=== PATIENT | female | born 1980 | race Caucasian/White ===

== ENCOUNTER 2016-10-16 10:57 | Emergency (ER) | payer SELFPAY ==
[~2016-10-16] VITALS: Ht 162.6 cm; Wt 90.0 kg
[2016-10-16 11:07] VITALS: BP 160/108; PULSE 96; RESP 12; O2SAT 98
--- NOTE | 2016-10-16 11:38 | ED.REPORT ---
HPI-General Illness Date of Service October 16, 2016 ED Provider: Lisandro Hurtado MD The patient is a 35 year old female with history of hypertension and anemia, who presents to the emergency department complaining of bilateral blurred vision that began earlier today while she was at work. She also felt shaky, dizzy, lightheaded, sweaty, and like she was going to pass out. She also noticed tingling around her lip and palpitations. She denies confusion, speech problem, vision loss, numbness, weakness, nausea, vomiting, chest pain or shortness of breath. Her symptoms are almost resolved except for her vision on the left is not completely back to normal, and she feels fatigue. She has family history of MS and brain aneurysm. She has not been sick recently. Nursing Notes Stated Complaint: BLURRY VISION Chief Complaint: Neuro Symptoms/ Deficits Nursing Notes Reviewed: Yes (Silver Push, meds not reconciled) Allergies: Coded Allergies: Penicillins (Verified Allergy, Severe, hives, 10/16/16) Scheduled Ferrous Sulfate (Iron) 325 Mg Tablet 650 MG PO DAILY Lisinopril (Lisinopril) 5 Mg Tablet 2.5 MG PO HS General Time Seen by MD: 11:37 Chief Complaint Other (blurred vision) Hx Obtained From: Patient Arrived By: Walk-in Sudden in Onset?: Yes Onset Occurred: 1 - 4 hours ago Symptom Duration: Since onset Severity: Current: No pain currently Severity: Maximum: No pain NIH Stroke Scale Level of Consciousness: Alert and responsive (0) Ask Month & Age: Both questions right (0) Open/Close Eyes/Hand Lead Network Engineer: Performs both tasks (0) Horizontal EO Movements: None (0) Visual Kemp: No visual loss (0) Facial Palsy: Normal symmetry (0) Right Arm Motor Drift (10s): No drift 10 sec (0) Left Arm Motor Drift (10s): No drift 10 sec (0) Right Leg Motor Drift (5s): No drift 5 sec (0) Left Leg Motor Drift (5s): No drift 5 sec (0) Limb Ataxia FNF/Heel-Sarmiento: No ataxia (0) Sensation (Arms/Legs/Face): No sensory loss (0) Language Aphasia: No aphasia, normal (0) Dysarthria: No dysarthria, normal (0) Extinction/Inattention: No exctinct/inattent (0) NIHSS Score: 0 Time NIHSS Performed: 11:51 Date NIHSS Performed: October 16, 2016 Past Medical History Past Medical History Hypertension Anemia Past Surgical History Reports: (x2) Reports: Tubal ligation Family History MS Brain aneurysm Stroke Smoking History Never Smoker Social History Alcohol Use: Denies alcohol use Other Social History: Good social support, Local resident 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 Ambulatory Status Independent Review of Systems +tingling around lip Full Review of Systems Constitutional: Reports: Fatigue, Denies: Chills, Fever Ears / Nose / Throat: Denies: Nasal congestion, Sore throat Respiratory: Denies: Non-productive cough, Prod cough, bloody, Prod cough, brown, Prod cough, clear, Prod cough, green, Prod cough, white, Prod cough, yellow, Shortness of breath Cardiovascular: Reports: Palpitations, Denies: Chest pain GI: Denies: Abdominal pain, Diarrhea, Nausea, Vomiting Skin: Reports Diaphoresis Neurologic: Reports: Dizziness, Lightheaded, Shaking, Vision change, Denies: Confusion, Focal weakness, Numbness, Slurred speech, Syncope, Unable to speak Complete sys rev & neg: except as marked. Physical Exam Vital Signs Vital Signs Date Time Temp Pulse Resp B/P Pulse Ox O2 Delivery O2 Flow Rate FiO2 10/16/16 15:37 36.9 78 17 135/74 99 10/16/16 14:52 81 15 137/78 98 Room Air 10/16/16 12:20 77 14 142/77 97 Room Air 10/16/16 11:07 36.6 96 12 160/108 98 Room Air Initial VS: Reviewed Head / Eyes: Atraumatic, Normocephalic, PERRL ENT: Mucous membranes moist, Conjunctiva normal, No scleral icterus Neck: Supple, Non-tender, Full range of motion Respiratory: Breath sounds normal, Clear to auscultation, No respiratory distress Cardiovascular: Regular rate & rhythm, Heart sounds normal, Intact distal pulses Abdomen / GI: Soft, Non-tender, No guarding, No rebound, No distention Lymphatic: No lymphadenopathy Extremities: Vascular intact, Neuro intact, No swelling, No tenderness Skin: Warm, Dry, No cyanosis Psychiatric: Mood/affect normal, Behavior normal, Normal thought content General/Constitutional: Awake, Alert, No acute distress, Well appearing, Well developed, Well hydrated, Well nourished, Cooperative Neurologic: Oriented X3, Speech NL, No motor deficits, No sensory deficits, CN II - XII intact, Cerebellar NL, Memory NL NIHSS: 0, see above for more details. Interpretation & Diagnostics Interpretation & Diagnostics: IMPRESSION: BRAIN MRI: 1. No acute intracranial hemorrhage or ischemia. 2. No focal parenchymal abnormalities or abnormal enhancement within the brain. BRAIN MR ANGIOGRAM: 1. The arteries within the brain are within normal limits. 2. No aneurysm, occlusion, or evidence to suggest dissection of the intracranial vessels. NECK MR ANGIOGRAM: 1. Normal appearance of the carotid and vertebral arteries. 2. No significant atherosclerosis, stenosis, aneurysm, or evidence of dissection. The estimate of stenosis included in the report of the imaging study was calculated using the NASCET method Dictated by: Dada Mcpherson M.D. on 10/16/2016 at 13:16 Lab Results Interpretation Result Diagram: 10/16/16 1215 10/16/16 1215 Test 10/16/16 12:15 White Blood Count 5.7th/mm3 (3.8-10.1) Red Blood Count 4.32mil/mm3 (3.90-5.20) Hemoglobin 9.1g/dL (12.0-15.6) Hematocrit 31.0% (35.0-46.0) Mean Corpuscular Volume 71.8fL (81-100) Mean Corpuscular Hemoglobin 21.1pg (27.0-35.0) Mean Corpuscular Hemoglobin Concent 29.4% (32.0-37.0) Red Cell Distribution Width 18.0% (12.3-15.4) Platelet Count 311bil/L (150-400) Neutrophils (%) (Auto) 64.7% (40-74) Lymphocytes (%) (Auto) 24.3% (14-46) Monocytes (%) (Auto) 8.5% (4-12) Eosinophils (%) (Auto) 1.6% (0-5) Basophils (%) (Auto) 0.7% (0-3) Sodium Level 139mEq/L (134-144) Potassium Level 3.7mEq/L (3.5-5.2) Chloride Level 103mEq/L (97-108) Carbon Dioxide Level 23mmol/L (18-29) Blood Urea Nitrogen 12mg/dL (6-20) Creatinine 0.57mg/dL (0.57-1.00) Estimat Glomerular Filtration Rate 172mL/min (>59) Glucose Level 99mg/dL (60-99) Calcium Level 9.1mg/dL (8.5-10.1) Total Bilirubin 0.7mg/dL (0.0-1.2) Aspartate Amino Transf (AST/SGOT) 13U/L (0-50) Alanine Aminotransferase (ALT/SGPT) 10U/L (0-32) Alkaline Phosphatase 68U/L (25-150) Total Protein 7.1g/dL (6.4-8.4) Albumin 3.9g/dL (3.4-5.0) Lab Results Interpretation: CBC normal CMP normal ECG Interpretation ECG Interpretation: Sinus rhythm with a rate of 73 No acute abnormalities No prior for comparison Time: 12:18 Interpreted by: ED physician Re-Eval/Medical Decision Med Decision/Clinical Course This is a 35-year-old female who presents for complaint of sudden onset of not feeling well, 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 She denies headache, she has focal numbness weakness or paresthesias of the arms or legs, and has had no change in speech or mentation. She is highly concerned she has a sister with MS, and reports multiple family members with cerebral aneurysms of unknown severity. She reports symptoms last about 30-45 minutes, but now finally resolved. Here in the emergency room she has normal visual acuity, I do not appreciate a adriane visual field cut at this time, her NIH stroke scale was 0. She is not a candidate for TPA, there is no definite diagnosis. Exam is normal, and her neurologic exam. Initially she had no cardiac dysrhythmias, heart tones are normal. She underwent an MRI stroke protocol which was negative for stroke, negative cerebral aneurysm and no pathology identified. Patient is reassured. I am not finding a different cause of her symptoms. She is not orthostatic, EKG is normal, laboratories are normal. At this point I have provided reassurance and she is being discharged. But if indicated if she has further visual symptoms the next step would be follow-up with ophthalmology. She has new or worsening symptoms she is to return to the emergency department. Source of Hx: Old records Time of Eval: 14:34 Re-Evaluation/Progress Note: Rechecked the patient. Discussed results, diagnosis, and plan for discharge. All questions were addressed. Differential Diagnosis: Negative: Abdominal pain, Acute coronary syndrome, Allergies, Neutropenia, Pneumonia, Syncope Counseled Regarding: Diagnosis, Lab results, Need for follow-up, When/why to return to ED Discharge & Departure Primary Impression: Visual disturbance Disposition: Home Discharge Condition All VS Reviewed: Yes Condition: Stable Additional Instructions: 1. The brain MRI was normal-there are nose findings of a stroke, no cerebral aneurysms, no multiple sclerosis or other dangerous pathology. 2. Your EKG and blood work were normal. 3. A dangerous cause her symptoms was not identified. 4. Activities and diet as tolerated. 5. Return if new or worsening symptoms occur. 6. If you have further visual symptoms week we occur, the next step would be to follow up to be evaluated by the ethylene plant operator. Please call for an appointment with Dr. Murguia (or one of her partners). 7. Your blood pressure was mildly elevated 160/108 when he first arrived, but on recheck it was completely normal at 137/76 and there were no findings to indicate your symptoms were secondary to directly to blood pressure. Scribe Attestation Portions of this note were transcribed by Angie Urbina. I, Dr. Hurtado personally performed the history, physical exam and medical decision-making; I reviewed and confirmed the accuracy of the information in the transcribed note. Signed by: Irene Laws, 10/16/2016 at 1515. Lisandro Hurtado MD October 16, 2016 11:38 Angie Urbina October 16, 2016 11:51
[2016-10-16 12:20] VITALS: BP 142/77; PULSE 77; RESP 14; O2SAT 97
[2016-10-16 12:26] LABS: BASOPHILS % (AUTO) 0.7 % (0-3); EOSINOPHILS % (AUTO) 1.6 % (0-5); MONOCYTES % (AUTO) 8.5 % (4-12); Mean Corpuscular Hemoglobin 21.1 pg (27.0-35.0); Mean Corpuscular Volume 71.8 fL (81-100); NEUTROPHILS % (AUTO) 64.7 % (40-74); Platelet Count 311 bil/L (150-400)
[2016-10-16] MEDS ORDERED: LISI10TA PO (13:33)
[2016-10-16] MEDS ORDERED: FERR325T39 PO (13:33)
[2016-10-16] MEDS ORDERED: LISI-571 PO (13:34)
--- NOTE | 2016-10-16 14:23 | DRSVH ---
PROCEDURE: MRI STROKE PROTOCOL ([id number]) Pre- and post-contrast brain MRI, non-contrast brain MR angiogram, pre- and postcontrast neck MR les ogram INDICATIONS: Visual field loss TECHNIQUE: Brain: Noncontrast axial T1 spin echo, axial T2 fast spin echo, sagittal and axial FLAIR, coronal T2 fast spin echo, axial gradient echo, axial diffusion and ADC through the brain. After the administr ation of contrast, axial 3D VIBE of the cranial vasculature and brain. Brain MRA: Non-contrast 3-D time of flight MR angiogram, with multiple zxmvijd-rnpokgimd-rwyzdrumir (MIP) reformats performed. Neck MRA: Axial and sagittal TruFISP through the neck. Coronal dynamic MR angiogram during administ ration of contrast in the arterial and venous phases, with 3-dimenstional qhfxsuz-ugpovnpyz-ccyylmpul n (MIP) reformats constructed from subtraction images. COMPARISON: None. FINDINGS: Image quality: Excellent. BRAIN: CSF spaces: Ventricles are normal in size and shape. Basal cisterns are patent. No extra-axial flu id collections. Brain: No intracranial bleeds or mass effects. Nickerson-white matter interface is normal. Diffusion we ighted images show no acute ischemic insults. Brainstem appears normal. Normal intravascular flow v oids are present. No abnormal intracranial enhancement. Skull and face: Calvarial marrow signal is normal. Orbits appear normal. Sinuses: Sinuses and mastoids are clear. BRAIN MR ANGIOGRAM: Anterior circulation: Intracranial internal carotid arteries are normal in size and enhancement. Th e flow within the paired anterior cerebral arteries is normal and symmetric. The flow within the mid dle cerebral arteries is normal and symmetric. The anterior communicating artery is seen. No stenos es, occlusions, or aneurysms. Posterior circulation: The visualized portions of the vertebral arteries demonstrate normal caliber, and join to form a normal appearing basilar artery. The flow within the posterior cerebral arteries is normal and symmetric. No stenoses, occlusions, or aneurysms. NECK MR ANGIOGRAM: Carotids: Great vessels demonstrate a conventional anatomy as they arise from the aortic arch. The origins of the common carotid arteries appear patent. The calibers and courses of both common caroti d arteries are normal. The bifurcation regions appear normal bilaterally. The internal carotid wilbert alma demonstrate normal course and caliber. Posterior circulation: The origins of the vertebral arteries appear patent. More superior portions of both vertebral arteries demonstrate normal course and caliber, and join to form a normal appearing basilar artery. Miscellaneous: Subclavian arteries appear patent. Pre-contrast images through the neck show no soft tissue abnormalities. IMPRESSION: BRAIN MRI: 1. No acute intracranial hemorrhage or ischemia. 2. No focal parenchymal abnormalities or abnormal enhancement within the brain. BRAIN MR ANGIOGRAM: 1. The arteries within the brain are within normal limits. 2. No aneurysm, occlusion, or evidence to suggest dissection of the intracranial vessels. NECK MR ANGIOGRAM: 1. Normal appearance of the carotid and vertebral arteries. 2. No significant atherosclerosis, stenosis, aneurysm, or evidence of dissection. The estimate of stenosis included in the report of the imaging study was calculated using the NASCET method Dictated by: Dada Mcpherson M.D. on 10/16/2016 at 13:16 Approved by: Dada Mcpherson M.D. on 10/16/2016 at 13:21
[2016-10-16 14:52] VITALS: BP 137/78; PULSE 81; RESP 15; O2SAT 98
[2016-10-16 15:37] VITALS: BP 135/74; PULSE 78; RESP 17; O2SAT 99
== END 2016-10-16 15:38 | disposition home or self-care (01) ==
LOC: SED 10:57
DX: H53.8 Other visual disturbances (principal); R42 Dizziness and giddiness; R20.2 Paresthesia of skin; I10 Essential (primary) hypertension; Z88.1 Allergy status to other antibiotic agents
CPT/HCPCS: 36415; 70549; 70553; 80053; 85025; 93005; 99284; A9585